=== PATIENT | male | born 1955 | race Caucasian/White ===

== ENCOUNTER 2017-07-24 09:34 | Outpatient (CLI) | payer MEDICARE, MEDICAID ==
[~2017-07-24] VITALS: Ht 182.9 cm; Wt 116.6 kg
[2017-07-24 09:57] LABS: BASOPHILS % (AUTO) 0.8 % (0.0-2.0); EOSINOPHILS % (AUTO) 3.8 % (0.0-3.0); LYMPHOCYTES % (AUTO) 16.6 % (20.0-45.0); MEAN CORPUSCULAR HEMOGLOBIN 30.1 PG (27.0-31.0); MEAN CORPUSCULAR HGB CONC 33.1 G/DL (32.0-36.0); MEAN CORPUSCULAR VOLUME 91 FL (80-99); MEAN PLATELET VOLUME 5.9 FL (6.5-10.1); MONOCYTES % (AUTO) 12.4 % (1.0-10.0); NEUTROPHILS % (AUTO) 66.4 % (45.0-75.0); PLATELET COUNT 182 K/UL (150-450); RED BLOOD COUNT 4.58 M/UL (4.70-6.10); RED CELL DISTRIBUTION WIDTH 12.7 % (11.6-14.8); WHITE BLOOD COUNT 8.2 K/UL (4.8-10.8)
[2017-07-24 10:00] LABS: INR 1.1 (0.9-1.1); PROTHROMBIN TIME 11.6 SEC (9.30-11.50)
[2017-07-24] MEDS ORDERED: Bupivacaine 0.5% Inj 30 ml vial INJ ONE (10:30)
[2017-07-24] MEDS ORDERED: Depo-Medrol 80mg Vial IARTIC ONE (10:30)
[2017-07-24] MEDS ORDERED: Depo-Medrol 40mg Inj IARTIC ONE (10:30)
[2017-07-24] MEDS ORDERED: Isovue-M 300 15ml INJ ONE (10:30)
[2017-07-24] MEDS ORDERED: Lidocaine 1% MPF 10mg/ml 5ml IM ONE (10:30)
[2017-07-24] MEDS ORDERED: CARVEDILOL25 MG ORAL (10:46)
[2017-07-24] MEDS ORDERED: AMLODIPINE BESYL5 MG ORAL (10:46)
[2017-07-24] MEDS ORDERED: PLAVIX75 MG ORAL (10:46)
[2017-07-24] MEDS ORDERED: NORVASC (10:46)
[2017-07-24] MEDS ORDERED: HUMULIN N100 UNIT/4 SQ (10:51)
[2017-07-24] MEDS ORDERED: TRULICITY1.5 MG/0.5 SQ (10:51)
[2017-07-24] MEDS ORDERED: TOUJEO SOL300 UNIT/1 SQ (10:51)
[2017-07-24] MEDS ORDERED: HUMALOG KW200 UNIT/1 SQ (10:51)
[2017-07-24] MEDS ORDERED: MORPHINE IR15 MG ORAL (10:54)
[2017-07-24] MEDS ORDERED: FENTANYL1 EAC5 TD (10:54)
[2017-07-24] MEDS ORDERED: PRAVASTATIN SOD20 M1 ORAL (10:54)
[2017-07-24] MEDS ORDERED: AMITRIPTYLINE100 MG ORAL (10:56)
[2017-07-24] MEDS ORDERED: SINGULAIR10 MG ORAL (10:56)
[2017-07-24] MEDS ORDERED: ASPIR 8181 MG ORAL (10:56)
[2017-07-24] MEDS ORDERED: GABAPENTIN100 MG ORAL (10:56)
[2017-07-24] MEDS ORDERED: GABAPENTIN300 MG ORAL (10:56)
[2017-07-24 10:58] VITALS: BP 149/88
[2017-07-24 11:35] VITALS: BP 146/91
--- NOTE | 2017-07-24 11:57 | Discharge Instructions ---
Discharge Instructions Discharge Instructions Follow up with: dr. ni at [facility] in 2 weeks Call MD/Return to Hospital if: there is pain progressive numbness or lower extremity weakness Diet: diabetic calorie control Resume Normal Activity?: Yes Activity: up ad paula Special Instructions resume plavix tomorrow, 07/25/2017 For Surgical Patients Clean and Dry: surgical site Dressing Care: keep dry and clean May shower: Yes Contact your physician for: bleeding, pain, tenderness, redness, swelling, yellowish discharge in the op. site For Congestive Heart Failure Reminder Report to your physician any weight gain of 5 pounds or more in one week. MARIELA NI Jul 24, 2017 11:57
--- NOTE | 2017-07-24 21:47 | Procedure Note ---
DATE OF PROCEDURE: 07/24/2017. PREPROCEDURE DIAGNOSIS: Degenerative disk disease, lumbar with radiculopathy. POSTPROCEDURE DIAGNOSIS: Degenerative disk disease, lumbar with radiculopathy. PROCEDURE PERFORMED: Lumbar epidural steroid injection under fluoroscopy. PROCEDURE IN DETAIL: The patient was warned of the risks, benefits were discussed, questions were answered. The patient indicated that he understood and accepted the risks including, not only those involved in the risk of the block procedure itself, but also those regarding the use of x-ray contrast agent, radiation, nerve damage, bleeding, and . The patient was transported to the radiology suite and placed in the prone position on the fluoroscopic compatible table. The skin over L3-L4 area was sterilely prepped and draped in the usual fashion. Spinal elements were visualized from a posterior vantage point using fluoroscopic guidance. The skin over L3-L4 area was anesthetized with 1% lidocaine methylparaben free with a 28-gauge needle. A 17-gauge Tuohy needle was then introduced through the same space and advanced with loss resistance technique to the epidural space. There was no CSF or heme appreciated. The test dose done with lidocaine with epinephrine was negative. There is only a slight paresthesia in the area of the patient's pain complaint. Depo-Medrol 80 mg plus 2 mL of 0.5% Marcaine along with 1 mL of preservative-free normal saline was instilled. The needle was then removed while the track was flushed with preservative free normal saline. The patient tolerated the procedure well. He was able to move both lower extremities without problem. There was no residual motor or sensory deficit appreciated. The patient was then transported to short stay surgery to be discharged in stable condition with appropriate instructions for postprocedure followup care. No radiologist was in attendance. Radiological technical assistance only was provided. Marita Saul M.D. DR: ANSHUL JOB#: [id number] CC:
--- NOTE | 2017-07-25 10:55 | Diagnostic Imaging Report ---
Indication: Intraoperative imaging, Technique: Intraoperative images Comparison: none Findings: Intraoperative images demonstrate a localizer tool projecting over what is presumably the L4-5 disc. Impression: Intraoperative imaging, as described
== END 2017-07-24 11:50 | disposition home or self-care (01) ==
LOC: RAD 09:34
DX: M51.36 Other intervertebral disc degeneration, lumbar region (principal); M54.16 Radiculopathy, lumbar region
CPT/HCPCS: 36415; 62323; 76000; 82962; 85025; 85610; 85730; J1030; J1040; J3490

== ENCOUNTER 2017-08-15 09:11 | Outpatient (CLI) | payer MEDICARE, MEDICAID ==
[~2017-08-15] VITALS: Ht 182.9 cm; Wt 113.9 kg
[~2017-08-15 09:11] MED LIST: AMITRIPTYLINE100 MG ORAL; AMLODIPINE BESYL5 MG ORAL; ASPIR 8181 MG ORAL; CARVEDILOL25 MG ORAL; FENTANYL1 EAC5 TD; GABAPENTIN100 MG ORAL; GABAPENTIN300 MG ORAL; HUMALOG KW200 UNIT/1 SQ; HUMULIN N100 UNIT/4 SQ; MORPHINE IR15 MG ORAL; NORVASC; PLAVIX75 MG ORAL; PRAVASTATIN SOD20 M1 ORAL; SINGULAIR10 MG ORAL; TOUJEO SOL300 UNIT/1 SQ; TRULICITY1.5 MG/0.5 SQ
[2017-08-15 09:27] VITALS: BP 136/96
[2017-08-15] MEDS ORDERED: Depo-Medrol 40mg Inj IARTIC ONE (09:30)
[2017-08-15] MEDS ORDERED: Lidocaine 1% MPF 10mg/ml 5ml INJ ONE (09:30)
[2017-08-15] MEDS ORDERED: Depo-Medrol 80mg Vial IARTIC ONE (09:30)
[2017-08-15] MEDS ORDERED: Bupivacaine 0.5% Inj 30 ml vial INJ ONE (09:30)
[2017-08-15 09:31] LABS: BASOPHILS % (AUTO) 0.5 % (0.0-2.0); EOSINOPHILS % (AUTO) 4.1 % (0.0-3.0); HEMATOCRIT 45.6 % (42.0-52.0); HEMOGLOBIN 15.2 G/DL (14.2-18.0); LYMPHOCYTES % (AUTO) 15.8 % (20.0-45.0); MEAN CORPUSCULAR VOLUME 90 FL (80-99); MONOCYTES % (AUTO) 7.9 % (1.0-10.0); NEUTROPHILS % (AUTO) 71.8 % (45.0-75.0); PLATELET COUNT 228 K/UL (150-450); RED CELL DISTRIBUTION WIDTH 12.2 % (11.6-14.8); WHITE BLOOD COUNT 8.7 K/UL (4.8-10.8)
[2017-08-15 10:45] VITALS: BP 138/93
[2017-08-15 11:05] VITALS: BP 130/97
--- NOTE | 2017-08-15 12:51 | Discharge Instructions ---
Discharge Instructions Discharge Instructions Diet: diabetic calorie control Resume Normal Activity?: Yes Activity: up ad paula For Surgical Patients Clean and Dry: surgical site Dressing Care: keep dry and clean May shower: Yes Contact your physician for: bleeding, pain, tenderness, redness, swelling, yellowish discharge in the op. site For Congestive Heart Failure Reminder Report to your physician any weight gain of 5 pounds or more in one week. MARIELA NI Aug 15, 2017 12:51
--- NOTE | 2017-08-15 21:30 | Procedure Note ---
SURGEON: Marita Saul M.D. PREPROCEDURE DIAGNOSIS: Degenerative disk disease, lumbar with radiculopathy. POSTPROCEDURE DIAGNOSES: Degenerative disk disease, lumbar with radiculopathy. PROCEDURE PERFORMED: Lumbar epidural steroid injection under fluoroscopy. PROCEDURE IN DETAIL: The patient was warned of the risks, benefits were discussed, and questions were answered. The patient indicated that he understood and accepted the risks including not only those involved in the risk of the block procedure itself, but also those regarding the use of x-ray contrast agent, radiation, nerve damage, bleeding, and . The patient was transported to the radiology suite and placed in the prone position on the fluoroscopic compatible table. Skin over T12-L1 and L3-L4 areas were sterilely prepped and draped in the usual fashion. Spinal elements were visualized from a posterior vantage point using fluoroscopic guidance. The skin over T12-L1 area and L3-L4 areas were anesthetized with 1% lidocaine methylparaben free with a 28-gauge needle. A 17-gauge Tuohy needle was introduced through the same spaces and advanced with loss of resistance technique to the epidural spaces. There was no CSF or heme appreciated. The test dose done with lidocaine with epinephrine was negative in both areas. There was only slight paresthesia in the area of the patient's pain complaint. Depo-Medrol 40 mg plus 1 mL of 0.5% Marcaine along with 1 mL of preservative-free normal saline was instilled in T12-L1 interspace. A needle was then removed while the track was flushed with preservative free normal saline. Depo-Medrol 80 mg plus 1 mL of 0.5% Marcaine along with 1 mL of preservative free normal saline was instilled in L3-L4 interspace. A needle was then removed while the track was flushed with preservative free normal saline. The patient tolerated the procedure well. He is able to move both the lower extremities without problems. There is no residual motor or sensory deficit appreciated. The patient was then transported to short stay surgery to be discharged in stable condition with appropriate instructions for postprocedure followup care. No radiologist was in attendance. Radiological technical assistance only was provided. Marita Saul M.D. DR: ANSHUL JOB#: [id number] CC:
== END 2017-08-15 11:11 | disposition home or self-care (01) ==
LOC: RAD 09:11
DX: M51.36 Other intervertebral disc degeneration, lumbar region (principal); M54.16 Radiculopathy, lumbar region
CPT/HCPCS: 36415; 62322; 82962; 85025; 85610; 85730; J1030; J3490

== ENCOUNTER 2017-08-27 08:38 | Outpatient (CLI) | payer MEDICARE, MEDICAID ==
[~2017-08-27] VITALS: Ht 188 cm; Wt 115.7 kg
[~2017-08-27 08:38] MED LIST changes: +Bupivacaine 0.5% Inj 30 ml vial INJ ONE; +Depo-Medrol 40mg Inj IARTIC ONE; +Depo-Medrol 80mg Vial IARTIC ONE; +Lidocaine 1% MPF 10mg/ml 5ml INJ ONE
[2017-08-27 08:56] VITALS: BP 137/66
[2017-08-27 09:01] LABS: BASOPHILS % (AUTO) 0.4 % (0.0-2.0); EOSINOPHILS % (AUTO) 1.6 % (0.0-3.0); HEMATOCRIT 40.9 % (42.0-52.0); HEMOGLOBIN 13.3 G/DL (14.2-18.0); LYMPHOCYTES % (AUTO) 21.9 % (20.0-45.0); MEAN CORPUSCULAR VOLUME 91 FL (80-99); NEUTROPHILS % (AUTO) 66.1 % (45.0-75.0); PLATELET COUNT 141 K/UL (150-450); RED BLOOD COUNT 4.49 M/UL (4.70-6.10); WHITE BLOOD COUNT 7.9 K/UL (4.8-10.8)
[2017-08-27 10:00] VITALS: BP 148/81
--- NOTE | 2017-08-27 18:08 | Diagnostic Imaging Report ---
Indication: Reason For Exam: PAIN Technique: Intraoperative images Total fluoroscopy time: 5 seconds. Fluoroscopy dose: 0.30 mGy Comparison: 07/24/2017 Findings: Intraoperative images demonstrate a needle projecting over what is presumably the L5-S1 disc space. Impression: Intraoperative imaging, as described
--- NOTE | 2017-08-27 21:15 | Procedure Note ---
DATE OF PROCEDURE: 08/27/2017 SURGEON: Marita Saul M.D. PRE-PROCEDURE DIAGNOSIS: Degenerative disk disease, lumbar with radiculopathy. POST-PROCEDURE DIAGNOSIS: Degenerative disk disease, lumbar with radiculopathy. PROCEDURE PERFORMED: Lumbar epidural steroid injection under fluoroscopy. PROCEDURE IN DETAIL: The patient was warned of the risks, benefits were discussed, questions were answered. The patient indicated that he understood and accepted the risks including, not only those involved the risk of the block procedure itself, but also those regarding the use of x-ray contrast agent, radiation, nerve damage, bleeding, and . The patient was transported to the radiology suite and placed in the prone position on the fluoroscopic compatible table. The skin over L5-S1 area was sterilely prepped and draped in the usual fashion. Spinal elements were visualized from posterior vantage point using fluoroscopic guidance. The skin over L5-S1 area was anesthetized with 1% lidocaine methylparaben free with a 28-gauge needle. A 17-gauge Tuohy needle was introduced through the same space and advanced with loss resistance technique to the epidural space. There was no CSF or heme appreciated. The test dose done with lidocaine with epinephrine was negative. There is only a slight paresthesia in the area of the patient's pain complaint. Depo-Medrol 120 mg plus 2 mL of 0.5% Marcaine along with 1 mL of preservative free normal saline was instilled in L5-S1 interspace. The needle was then removed while the track was flushed with preservative free normal saline. The patient tolerated the procedure well. He was able to move both lower extremities without problem. There was no residual motor or sensory deficit appreciated. The patient was then transported to short stay surgery to be discharged in stable condition with appropriate instructions for postprocedure followup care. No radiologist was in attendance. Radiological technical assistance only was provided. Marita Saul M.D. DR: SHANIA JOB#: [id number] CC: PAPITO
== END 2017-08-27 10:15 | disposition home or self-care (01) ==
LOC: RAD 08:38 → EDSTATUS 09:00 → RAD 10:15
DX: M51.36 Other intervertebral disc degeneration, lumbar region (principal); M54.16 Radiculopathy, lumbar region; K21.9 Gastro-esophageal reflux disease without esophagitis; I25.2 Old myocardial infarction; Z79.02 Long term (current) use of antithrombotics/antiplatelets; I12.9 Hypertensive chronic kidney disease with stage 1 through stage 4 chronic kidney disease, or unspecified chronic kidney disease; E11.22 Type 2 diabetes mellitus with diabetic chronic kidney disease; N18.3 Chronic kidney disease, stage 3 (moderate); Z95.5 Presence of coronary angioplasty implant and graft
CPT/HCPCS: 36415; 62323; 77003; 82962; 85025; 85610; 85730; J1030; J1040; J3490